=== PATIENT | female | born 1995 | race Caucasian/White ===

== ENCOUNTER 2018-05-13 20:10 | Emergency (ER) | payer OTHER ==
[~2018-05-13] VITALS: Ht 167.6 cm; Wt 71.0 kg
[2018-05-13 20:12] VITALS: BP 139/87
[2018-05-13] MEDS ORDERED: PHENAZOPYRIDINE 200 MG TABLET ONE (20:26)
[2018-05-13] MEDS ORDERED: AZITHROMYCIN 500 MG TABLET PO ONE (20:30)
[2018-05-13] MEDS ORDERED: PHENAZOPYRIDINE 200 MG TABLET PO ONE (20:30)
[2018-05-13] MEDS ORDERED: CEFTRIAXONE 250 MG IM ONE (20:30)
[2018-05-13] MEDS ORDERED: AZITHROMYCIN 250 MG TABLET ONE (20:39)
[2018-05-13] MEDS ORDERED: CEFTRIAXONE 250 MG ONE (20:39)
[2018-05-13 20:43] LABS: BASOPHILS # (AUTO) 0.05 x10^3/uL (0-0.1); BASOPHILS % (AUTO) 1 % (0-1); EOSINOPHILS # (AUTO) 0.29 x10^3/uL (0-0.4); EOSINOPHILS % (AUTO) 3 % (1-7); LYMPHOCYTES # (AUTO) 2.46 x10^3/uL (1-3.4); LYMPHOCYTES % (AUTO) 27 % (22-44); MD NO; MEAN CORPUSCULAR HEMOGLOBIN 29.8 pg (27.0-34.8); MEAN CORPUSCULAR HGB CONC 33.8 g/dL (32.4-35.8); MEAN CORPUSCULAR VOLUME 88.2 fL (80-100); MEAN PLATELET VOLUME 8.4 fL (7.4-10.4); MONOCYTES # (AUTO) 0.49 x10^3/uL (0.2-0.8); MONOCYTES % (AUTO) 5 % (2-9); NEUTROPHILS # (AUTO) 5.78 x10^3/uL (1.8-6.8); NEUTROPHILS % (AUTO) 64 % (42-75); PLATELET COUNT 251 x10^3/uL (130-400); RED BLOOD COUNT 4.65 x10^6/uL (3.82-5.3); RED CELL DISTRIBUTION WIDTH 13.3 % (9.6-15.2)
[2018-05-13 20:55] LABS: ALANINE AMINOTRANSFERASE 30 U/L (12-78); ALBUMIN 3.7 g/dL (3.4-5.0); ANION GAP 9 mmol/L (5-15); CHLORIDE 108 mmol/L (98-107); CREATININE 0.92 mg/dL (0.55-1.02)
[2018-05-13 21:00] LABS: ALKALINE PHOSPHATASE 53 U/L (45-117); BILIRUBIN,TOTAL 0.2 mg/dL (0.2-1.0); CALCIUM 8.8 mg/dL (8.5-10.1); TOTAL PROTEIN 7.5 g/dL (6.4-8.2)
[2018-05-13 21:03] LABS: MICROSCOPIC INDICATED
[2018-05-13 21:06] LABS: CULTURE INDICATED? YES
[2018-05-13 21:47] LABS: CLUE CELLS NONE SEEN (NONE SEEN); WET PREP WBCS FEW (FEW)
== END 2018-05-13 22:05 | disposition home or self-care (01) ==
LOC: ED 22:01
DX: N30.01 Acute cystitis with hematuria (principal)
CPT/HCPCS: 36415; 80053; 81001; 84703; 85025; 87086; 87210; 87491; 87591; 87808; 96372; 99284; J0696

== ENCOUNTER 2021-04-17 13:25 | Inpatient (IN) | payer BC, OTHER ==
[~2021-04-17] VITALS: Ht 167.6 cm; Wt 85.0 kg
[2021-04-20] MEDS ORDERED: TERBUTALINE 1 MG/ML, 1ML IVPush PRN (12:30)
[2021-04-20] MEDS ORDERED: ONDANSETRON 2MG/ML, 2ML IVPush PRN (12:30)
[2021-04-20] MEDS ORDERED: OXYTOCIN 30U/ 0.9% NaCL 500ML 500 ML IV PRN (12:30)
[2021-04-20] MEDS ORDERED: OXYTOCIN 30U/ 0.9% NaCL 500ML 500 ML IV ONE (12:30)
[2021-04-20] MEDS ORDERED: SODIUM CHLORIDE FLUSH 10ML SYR IVF PRN (12:30)
[2021-04-20] MEDS ORDERED: SODIUM CITRATE/CITRIC ACID 30 ML UDC PO PRN (12:30)
[2021-04-20] MEDS ORDERED: FENTANYL PF 100 MCG/2ML IVPush PRN (12:30)
[2021-04-20] MEDS ORDERED: METOCLOPRAMIDE 5 MG/ML, 2ML IVPush PRN (12:30)
[2021-04-20] MEDS ORDERED: D5%-LACTATED RINGERS 1,000 ML IV SCH (12:30)
[2021-04-20] MEDS ORDERED: TERBUTALINE 1 MG/ML, 1ML SQ PRN (12:30)
[2021-04-20] MEDS ORDERED: FENTANYL PF 100 MCG/2ML IV PRN (12:30)
[2021-04-20] MEDS ORDERED: MISOPROSTOL 200 MCG TABLET ONE (12:48)
[2021-04-20] MEDS ORDERED: LIDOCAINE 1%, 20ML ONE (12:48)
[2021-04-20] MEDS ORDERED: MISOPROSTOL 25 MCG TABLET ONE (12:48)
[2021-04-20] MEDS ORDERED: NEWBORN KIT ONE (12:48)
[2021-04-20] MEDS ORDERED: OXYTOCIN 30U/ 0.9% NaCL 500ML 500 ML ONE (12:50)
[2021-04-20] MEDS: MISOPROSTOL 25 MCG TABLET VG PRN ×2 (13:02→17:15)
[2021-04-20 13:10] VITALS: BP 110/61
[2021-04-20 13:11] LABS: BASOPHILS % (AUTO) 1 % (0-1); EOSINOPHILS % (AUTO) 1 % (1-7); LYMPHOCYTES % (AUTO) 18 % (22-44); MEAN CORPUSCULAR HEMOGLOBIN 28.9 pg (27.0-34.8); MEAN CORPUSCULAR HGB CONC 33.1 g/dL (32.4-35.8); MEAN PLATELET VOLUME 10.5 fL (7.4-10.4); MONOCYTES % (AUTO) 5 % (2-9); NEUTROPHILS % (AUTO) 75 % (42-75); PLATELET COUNT 194 x10^3/uL (130-400); RED BLOOD COUNT 4.17 x10^6/uL (3.82-5.3); RED CELL DISTRIBUTION WIDTH 14.1 % (9.6-15.2)
[2021-04-20] MEDS ORDERED: PENICILLIN GK 5,000,000 UNITS in DEXTROSE 5% 100 ML IVPB ONE (14:00)
[2021-04-20 15:49] LABS: AMPHETAMINE SCREEN, URINE Negative (Negative); BARBITURATE SCREEN, URINE Positive (Negative); BENZODIAZEPINE SCREEN, URINE Negative (Negative); CANNABINOID SCREEN, URINE Negative (Negative); COCAINE SCREEN, URINE Negative (Negative); METHADONE SCREEN, URINE Negative (Negative); OPIATE SCREEN, URINE Negative (Negative)
[2021-04-21] MEDS ORDERED: FENTANYL/BUPIV./NS/PF 0 ML EPIDCONT ONE (01:07)
[2021-04-21] MEDS ORDERED: LACTATED RINGERS 1,000 ML IVBOLUS PRN (02:00)
[2021-04-21] MEDS ORDERED: EPHEDRINE 50 MG/ML, 1ML IVPush PRN (02:00)
[2021-04-21] MEDS ORDERED: LACTATED RINGERS 1,000 ML IV SCH (02:00)
[2021-04-21] MEDS ORDERED: NALOXONE 0.4 MG/ML, 1ML IVPush PRN (02:00)
[2021-04-21] MEDS ORDERED: FENTANYL/BUPIV./NS/PF 250 ML EPIDCONT SCH (02:00)
[2021-04-21] MEDS: LACTATED RINGERS 1,000 ML IV SCH ×2 (03:30→20:03)
[2021-04-21] MEDS: PENICILLIN GK 2,500,000 UNITS in DEXTROSE 5% 100 ML IVPB SCH ×4 (04:24→16:45)
[2021-04-21] MEDS ORDERED: BUPIVACAINE 0.25% ONE ×3 (10:36→17:30)
[2021-04-21] MEDS ORDERED: IBUPROFEN 600 MG TABLET ONE (19:59)
[2021-04-21] MEDS: IBUPROFEN 600 MG TABLET PO PRN (20:30)
[2021-04-21] MEDS ORDERED: MISOPROSTOL 200 MCG TABLET PR PRN (20:30)
[2021-04-21] MEDS ORDERED: ACETAMINOPHEN 325 MG TABLET PO PRN (20:30)
[2021-04-21] MEDS ORDERED: SIMETHICONE 80 MG CHEW TAB PO PRN (20:30)
[2021-04-21] MEDS: OXYTOCIN 30U/ 0.9% NaCL 500ML 500 ML IV SCH (20:30)
[2021-04-21] MEDS ORDERED: ONDANSETRON 2MG/ML, 2ML IV PRN (20:30)
[2021-04-21 22:40] VITALS: BP 109/63
[2021-04-22] VITALS (7 sets, daily range): BP systolic 107–134; BP diastolic 9–82
[2021-04-22 04:06] LABS: BASOPHILS % (AUTO) 1 % (0-1); EOSINOPHILS % (AUTO) 0 % (1-7); LYMPHOCYTES % (AUTO) 8 % (22-44); MEAN CORPUSCULAR HEMOGLOBIN 28.8 pg (27.0-34.8); MEAN CORPUSCULAR HGB CONC 33.5 g/dL (32.4-35.8); MEAN PLATELET VOLUME 10.6 fL (7.4-10.4); MONOCYTES % (AUTO) 5 % (2-9); NEUTROPHILS % (AUTO) 86 % (42-75); PLATELET COUNT 183 x10^3/uL (130-400); RED BLOOD COUNT 3.54 x10^6/uL (3.82-5.3); RED CELL DISTRIBUTION WIDTH 14.3 % (9.6-15.2)
[2021-04-22] MEDS: IBUPROFEN 600 MG TABLET PO PRN ×3 (05:32→20:08)
[2021-04-22] MEDS: OXYTOCIN 30U/ 0.9% NaCL 500ML 500 ML IV SCH ×2 (06:30→16:30)
[2021-04-22] MEDS: PRENATAL VIT/IRON/FA 1 EACH TABLET PO SCH (08:20)
[2021-04-22] MEDS: DOCUSATE 100 MG CAPSULE PO PRN ×2 (08:20→19:47)
[2021-04-23] MEDS: OXYTOCIN 30U/ 0.9% NaCL 500ML 500 ML IV SCH (02:29)
[2021-04-23 08:10] VITALS: BP 124/84
[2021-04-23] MEDS: PRENATAL VIT/IRON/FA 1 EACH TABLET PO SCH (08:56)
[2021-04-23] MEDS: DOCUSATE 100 MG CAPSULE PO PRN (08:56)
[2021-04-23] MEDS ORDERED: IBUP-1222 PO (13:22)
== END 2021-04-23 14:42 | disposition home or self-care (01) | DRG 806 ==
LOC: LDIP 04-20 12:24 → 2NW 04-21 22:07
PROVIDERS: ADMIT Obstetrics & Gynecology Maternal & Fetal Medicine; ATTEND Obstetrics & Gynecology Maternal & Fetal Medicine
PROC: 10E0XZZ Delivery of Products of Conception, External Approach (ICD-10-PCS; principal; 2021-04-21)
PROC: 3E0R3BZ Introduction of Anesthetic Agent into Spinal Canal, Percutaneous Approach (ICD-10-PCS; 2021-04-21)
PROC: 00HU33Z Insertion of Infusion Device into Spinal Canal, Percutaneous Approach (ICD-10-PCS; 2021-04-21)
PROC: 0HQ9XZZ Repair Perineum Skin, External Approach (ICD-10-PCS; 2021-04-21)
DX: O99.824 Streptococcus B carrier state complicating childbirth (principal); O98.32 Other infections with a predominantly sexual mode of transmission complicating childbirth; Z37.0 Single live birth; O48.0 Post-term pregnancy; Z3A.40 40 weeks gestation of pregnancy; Z20.822 Contact with and (suspected) exposure to COVID-19; O99.344 Other mental disorders complicating childbirth; F32.9 Major depressive disorder, single episode, unspecified; F41.9 Anxiety disorder, unspecified; O99.284 Endocrine, nutritional and metabolic diseases complicating childbirth; E55.9 Vitamin D deficiency, unspecified; O70.0 First degree perineal laceration during delivery
CPT/HCPCS: 36415; J7121; 80307; 85025; 86592; 86850; 86900; 87635; G0378; J2405; J2540; J2590; J7120